=== PATIENT | female | born 1960 | race Caucasian/White ===

== ENCOUNTER 2017-05-09 19:10 | Emergency (ER) | payer MEDICAID ==
[~2017-05-09] VITALS: Ht 157.5 cm; Wt 52.2 kg
[2017-05-09] MEDS ORDERED: SODIUM CHLORIDE FLUSH 10ML SYR IVF ONE (20:00)
[2017-05-09] MEDS ORDERED: SODIUM CHLORIDE 0.9% 1,000ML IVBOLUS ONE (20:00)
[2017-05-09] MEDS ORDERED: TRAM50TA2 PO (20:00)
[2017-05-09 20:10] LABS: HEMATOCRIT 46.7 % (34.6-47.8); HEMOGLOBIN 15.6 g/dL (11.7-16.4); WHITE BLOOD COUNT 9.7 x10^3/uL (3.4-10)
[2017-05-09 20:15] LABS: BLOOD UREA NITROGEN 9 mg/dL (7-18)
[2017-05-09] MEDS ORDERED: MORPHINE SULFATE 4 MG/ML, 1ML ONE (20:23)
[2017-05-09] MEDS ORDERED: ONDANSETRON 2MG/ML, 2ML ONE (20:23)
[2017-05-09] MEDS ORDERED: MORPHINE SULFATE 4 MG/ML, 1ML IVPush PRN (20:30)
[2017-05-09] MEDS ORDERED: ONDANSETRON 2MG/ML, 2ML IVPush ONE (20:30)
[2017-05-09 20:42] LABS: PATH.CAST-FLAG NOT PRESENT; SPERM-FLAG NOT PRESENT; SRC-FLAG NOT PRESENT; XTAL-FLAG NOT PRESENT; YLC-FLAG NOT PRESENT
[2017-05-09 21:51] VITALS: BP 130/77
== END 2017-05-09 21:56 | disposition home or self-care (01) ==
LOC: ED 21:08
DX: S32.10XA Unspecified fracture of sacrum, initial encounter for closed fracture (principal); G89.29 Other chronic pain; R10.2 Pelvic and perineal pain; F17.200 Nicotine dependence, unspecified, uncomplicated; X58.XXXA Exposure to other specified factors, initial encounter; Y93.89 Activity, other specified; Y92.89 Other specified places as the place of occurrence of the external cause; Y99.8 Other external cause status
CPT/HCPCS: 36415; 72190; 73630; 80048; 81001; 82040; 85025; 96361; 96374; 96375; 99285; J2405; J7030